=== PATIENT | female | born 1950 | race Caucasian/White ===

== ENCOUNTER 2021-11-16 07:54 | Outpatient (CLI) | payer OTHER, SELFPAY ==
[2021-11-16 14:34] LABS: TSH With Reflex to FT4* 0.869 uIU/mL (0.270-4.200)
[2021-11-16 16:33] LABS: Albumin* 4.4 g/dL (3.3-5.0); Chloride* 100 mmol/L (96-114)
[2021-11-16 16:34] LABS: Potassium* 4.5 mmol/L (3.6-5.1); Sodium* 138 mmol/L (135-149)
[2021-11-16 16:36] LABS: Aspartate Amino Transferase* 28 U/L (12-35); Bilirubin Total* 0.3 mg/dL (0.1-1.5); Carbon Dioxide* 30 mmol/L (20-32); Creatinine* 0.8 mg/dL (0.5-1.5); Estimated Glomerular Filt Rate 80 ml/min; Total Protein* 7.2 g/dL (6.0-8.3)
[2021-11-16 16:37] LABS: Alanine Aminotransferase* 18 U/L (4-35); Alkaline Phosphatase* 102 U/L (40-150); Blood Urea Nitrogen* 19 mg/dL (7-30); Calcium* 9.3 mg/dL (8.4-10.6); Glucose* 97 mg/dL (60-115)
[2021-11-18 03:33] LABS: Vitamin D, 1,25-Dihydroxy 49.8 pg/mL (19.9-79.3)
== END 2021-11-16 07:55 | disposition home or self-care (01) ==
PROVIDERS: PCP Physician Assistant Medical; Visit Provider Physician Assistant Medical
DX: E55.9 Vitamin D deficiency, unspecified (principal); R63.4 Abnormal weight loss; R53.83 Other fatigue
CPT/HCPCS: 80053; 82652; 84443

== ENCOUNTER 2022-04-20 08:00 | Outpatient (CLI) | payer OTHER, SELFPAY ==
[2022-04-20 15:28] LABS: Albumin* 4.1 g/dL (3.3-5.0); Chloride* 110 mmol/L (96-114); Potassium* 4.3 mmol/L (3.6-5.1); Sodium* 145 mmol/L (135-149)
[2022-04-20 15:31] LABS: Alkaline Phosphatase* 107 U/L (40-150); Aspartate Amino Transferase* 27 U/L (12-35); Bilirubin Total* 0.4 mg/dL (0.1-1.5); Blood Urea Nitrogen* 19 mg/dL (7-30); Carbon Dioxide* 28 mmol/L (20-32); Creatinine* 0.7 mg/dL (0.5-1.5); Estimated Glomerular Filt Rate 94 ml/min; Total Protein* 6.6 g/dL (6.0-8.3)
[2022-04-20 15:32] LABS: Alanine Aminotransferase* 20 U/L (4-35); Calcium* 9.3 mg/dL (8.4-10.6); Glucose* 102 mg/dL (60-115)
== END 2022-04-20 08:01 | disposition home or self-care (01) ==
LOC: FRMREF 08:02
PROVIDERS: PCP Physician Assistant Medical; Visit Provider Physician Assistant Medical
DX: R10.9 Unspecified abdominal pain (principal); G89.29 Other chronic pain
CPT/HCPCS: 80053

== ENCOUNTER 2022-05-11 07:46 | Outpatient (CLI) | payer OTHER, SELFPAY ==
--- NOTE | 2022-05-11 08:00 | CRLHL7_ITS ---
For Patients: As a result of the Century Cures Act, medical imaging exams and procedure reports are released immediately into your electronic medical record. You may view this report before your referring provider. If you have questions, please contact your health care provider. Indication: chronic abdominal pain, more epigastric pain, but pain all over, nausea Technique: Postcontrast CT abdomen and pelvis. 71 cc Isovue 370 intravenous contrast. Please note that all CT scans at this facility use dose modulation, iterative reconstruction, and/or weight-based dosing when appropriate to reduce radiation dose to as low as reasonably achievable. Comparison: 10/15/2015 Findings: There is mild linear subsegmental atelectasis within the right middle lobe. Mild hepatic steatosis. No intrahepatic mass or stigmata of cirrhosis. Postoperative changes of hiatal hernia repair. Atherosclerotic disease. No aneurysm. Adrenal glands normal. Normal kidneys. Gallbladder unremarkable. Normal spleen. Pancreas normal. No free air, free fluid or abscess. Mild circumferential thickening of the distal stomach noted, see series 2, images 35-43. Bladder normal. Normal uterus. Ovaries unremarkable. Moderate stool in the colon. No diverticulitis. No abdominal or pelvic adenopathy. Degenerative disc disease at the thoracolumbar junction. Facet degeneration lower lumbar spine. No fracture. Mild degenerative joint disease of both hips. Impression: Postoperative changes of hiatal hernia repair. There may be mild mucosal thickening of the distal stomach wall which may suggest gastritis. No gastric outlet obstruction. Moderate stool within the redundant colon. No evidence of diverticulitis. Normal gallbladder without evidence of calcified gallstones or biliary obstruction. Please note that all CT scans at this facility use dose modulation, iterative reconstruction, and/or weight-based dosing when appropriate to reduce radiation dose to as low as reasonably achievable. Dictated by Sedrick Castro MD @ 05/11/2022 12:42:22 PM (Electronically Signed)
== END 2022-05-11 07:47 | disposition home or self-care (01) ==
LOC: CT 07:48
PROVIDERS: PCP Physician Assistant Medical; Visit Provider Physician Assistant Medical
DX: R10.9 Unspecified abdominal pain (principal); G89.29 Other chronic pain
CPT/HCPCS: 74177; Q9967

== ENCOUNTER 2022-07-26 07:23 | Outpatient (CLI) | payer OTHER, SELFPAY ==
--- NOTE | 2022-07-26 08:17 | W.ANESCHARGE ---
Anesthesia Charges Start Date/Time Anesthesia Start Date: 07/26/22 Anesthesia Start Time: 08:25 Stop Date/Time Anesthesia Stop Date: 07/26/22 Anesthesia Stop Time: 08:45
--- NOTE | 2022-07-26 08:44 | W.ANESCHARGE ---
Anesthesia Charges Start Date/Time Anesthesia Start Date: 07/26/22 Anesthesia Start Time: 08:25 Stop Date/Time Anesthesia Stop Date: 07/26/22 Anesthesia Stop Time: 08:45
== END 2022-07-26 07:24 | disposition home or self-care (01) ==
LOC: OP CLINIC 07:24
PROVIDERS: PCP Physician Assistant Medical; Visit Provider Internal Medicine
DX: R19.8 Other specified symptoms and signs involving the digestive system and abdomen (principal)
CPT/HCPCS: 43239; 731; 88305; J2704; J3490

== ENCOUNTER 2022-09-20 09:23 | Day surgery (SDC) | payer OTHER, SELFPAY ==
[2022-09-20] VITALS (24 sets, daily range): BP systolic 102–168; BP diastolic 64–92; PULSE 58–113; RESP 12–95; TEMP 20–36.8; O2SAT 93–100; BMI 32.0
[2022-09-20] MEDS: LACTATED RINGERS 1000 ML 1,000 ML 100 ML IV ×2 (09:35→13:28)
[2022-09-20] MEDS: CELECOXIB 200 MG CAPSULE PO (09:55)
[2022-09-20] MEDS: ACETAMINOPHEN 500 MG TABLET 1000 MG PO ×3 (09:55→23:46)
[2022-09-20] MEDS: OXYCODONE (CR) 10 MG TAB.ER.12H PO (09:56)
[2022-09-20] MEDS: SODIUM CHLORIDE 0.9 % (FLUSH) 10 ML SYRINGE IVF (09:56)
[2022-09-20] MEDS: fentaNYL 100 MCG/2 ML inj IVP (10:45)
[2022-09-20] MEDS: MIDAZOLAM HCL 1 MG/ML inj IVP (10:45)
--- NOTE | 2022-09-20 10:46 | SUR.PREOP ---
TIME?OUT:?1043 PT/RN/MDA?VERIFICATION?OF?SURGICAL?SITE Left Knee,?PROCEDURE, Adductor Canal Block?AND?CONSENT OBTAINED?PRIOR?TO?INVASIVE?PROCEDURE.
[2022-09-20] MEDS: CEFAZOLIN 2 GM in 0.9 % SODIUM CHLORIDE Mini-bag 100 ML IVPB ×2 (11:05→17:55)
[2022-09-20] MEDS: TRANEXAMIC ACID 100 MG/ML INJ 1000 MG IV (11:10)
--- NOTE | 2022-09-20 11:13 | CRLHL7_ITS ---
For Patients: As a result of the Cures Act, medical imaging exams and procedure reports are released immediately into your electronic medical record. You may view this report before your referring provider. If you have questions, please contact your health care provider. INDICATION: Follow up a left knee arthroplasty. TECHNIQUE: Two postoperative images of the left knee. COMPARISON: Pre-surgical images from September 05, 2022. FINDINGS: New left total knee arthroplasty with patellar resurfacing. The components are adequately aligned and well seated. Air within the soft tissues and joint space related to the surgery. IMPRESSION: Postsurgical change from a left total knee arthroplasty. The components are adequately aligned and well seated. Dictated by Darian Cook MD @ 09/20/2022 2:26:52 PM (Electronically Signed)
--- NOTE | 2022-09-20 12:29 | PM.ORPRC ---
Procedure Note Date of procedure: 09/20/22 Procedure: PREOPERATIVE DIAGNOSIS: 1. Left knee osteoarthritis, primary, severe POSTOPERATIVE DIAGNOSIS: 1. Left knee osteoarthritis, primary, severe PROCEDURE: 1. Left total knee arthroplasty SURGEON: Osvaldo Rainey MD. PATIENT TRANSPORTER: Castro Dugan PA-C - Of note, a skilled bilingual teacher assistant was critical for this case to aid in patient positioning, tissue retraction, limb manipulation/positioning, and closure. ANESTHESIA: Spinal anesthetic EBL: 50ml IMPLANTS: DePuy J&J all cemented TKA - Attune PS femur size 3 narrowing, size 2 tibia, 5 poly spacer, 35 mm patella TOURNIQUET: 90 min at 300 torr COMPLICATIONS: None evident INDICATIONS: The patient is a pleasant 72-year-old female who has experienced severe left knee pain and difficulty bearing weight. Workup included x-rays which revealed severe osteoarthrosis in the knee. Given the deformity, the dysfunction, and the pain, as well as the failure of nonoperative management, recommendation was made for surgery. FINDINGS: Moderate effusion upon entering joint. Full-thickness chondral loss medial compartment and to a lesser degree patellofemoral compartment. Tricompartmental osteophytes noted. DESCRIPTION OF PROCEDURE: Following a thorough discussion of risks, benefits, and alternatives consent was obtained and the left knee was marked. The patient was brought to the operating room and placed supine on the operating table. Induction of anesthesia was undertaken. 1 g IV Ancef and 1 g tranexamic acid was administered within 1 hr of incision preoperatively. Proper time-out was performed identifying proper patient, site, procedure. The operative extremity was prepped and draped in the appropriate sterile fashion using ChloraPrep after the patient was positioned supine with all bony prominences well padded. A longitudinal, anterior, midline skin incision was made starting approximately 3cm proximal to the superior pole of the patella and advanced distal to the tibial tubercle. A median parapatellar arthrotomy was created. A medial subperiosteal sleeve was created with knife, thompson elevator and curved osteotome. The retropatellar fatpad was resected and the synovium in the suprapatellar pouch excised to visualize the anterior femoral cortex. Femoral preparation was performed via an intramedullary guide. Step drill allowed access into the femoral canal. The distal cutting guide was placed with 5? of valgus and 10 mm cut on the distal femur. Femur was sized using a anterior referencing guide in 3? of external rotation. This found have a best fit with the sizing noted above. The 4 in 1 cutting block was then placed, and the distal femur shaped accordingly. The box cut was then created and the trial implant inserted to confirm appropriate fit. We turned our attention to the proximal tibia. Extramedullary guide was utilized for cutting with the goal of being 90 degree cut from the mechanical axis of the tibia in the varus/valgus plane utilizing tibial crest as the primary alignment. Initially a 2 mm resection was performed from the medial tibial plateau. Ultimately, balancing was achieved in both flexion and extension in both varus and valgus. The knee was able to achieve full extension as well comfortably. The patella was initially measured and found have a thickness of 22 mm. It was resected back to approximately 14.5 mm. It was sized to be a best fit with as noted above. This was drilled, trial placed. All trials were placed and found to have an excellent stability and balance. At this stage, trial implants were removed, the knee was thoroughly irrigated with normal saline, and the cement was mixed. After irrigation, the knee was thoroughly dried, and cement placed, with the real tibial and femoral implants placed along with the patella. Trial poly spacer was placed and confirmed to have excellent range of motion and full extension, and the real poly spacer opened and inserted. All extra cement was removed, and a 3 min Betadine soak performed. Finally, a final irrigation round with normal saline was performed. Closure performed with 0 PDS and #0 Stratafix for the quad tendon/retinaculum. 2-0 Vicryl/Stratafix for the subcutaneous and 4-0 Monocryl for subcuticular closure. Dressings were applied and the patient was awoken from anesthesia after the tourniquet deflated and transferred the PACU in stable condition. A skilled bilingual teacher assistant was critical for this case to aid in patient positioning, tissue retraction, bone exposure, limb manipulation/positioning, patient safety, and closure. PLAN: 1. Weight bear as tolerated operative extremity. 2. 23 hr perioperative antibiotics. 3. Ice. 4. PT/OT consults for ambulation assistance/mobility education. 5. Social work consult for discharge planning. 6. DVT prophylaxis with at SCDs, [place] Hose, and aspirin twice daily.
--- NOTE | 2022-09-20 12:43 | W.PM.NB ---
Nerve Block Nerve Block Time Seen by Provider: 10:45 Date Seen: 09/20/22 Type of block requested by surgeon for post-operative analgesia: adductor canal Side: left Time out performed: Yes Verification of patient name: Yes Verification of date of : Yes Site marking: site marked Name of person performing procedure: Aaron Escobar Continuous monitoring Was continuous monitoring of O2 sat, B/P, front desk monitor, recorded every 15 minutes?: Yes Procedure Ultrasound guided. Images saved: Yes Medications given in 5ml increments after negative aspiration: Ropivicaine %: 0.5 mL: 20 Needle gauge: 21 Decadron (mg): 10 Precedex (mcg): 20 Patient tolerated procedure well: Yes Block Charges Block Charge (with Pro Fee): Femoral Nerve Use of Ultrasound Machine for Block: Yes- US Guidance/pain block
--- NOTE | 2022-09-20 12:45 | W.PM.NB ---
Nerve Block Nerve Block Time Seen by Provider: 10:45 Date Seen: 09/20/22 Type of block requested by surgeon for post-operative analgesia: geniculars Side: left Time out performed: Yes Verification of patient name: Yes Verification of date of : Yes Site marking: site marked Name of person performing procedure: Aaron Escobar Continuous monitoring Was continuous monitoring of O2 sat, B/P, combination building inspector, recorded every 15 minutes?: Yes Procedure Ultrasound guided. Images saved: Yes Medications given in 5ml increments after negative aspiration: Ropivicaine %: 0.5 mL: 10 Needle gauge: 25 Patient tolerated procedure well: Yes Block Charges Block Charge (with Pro Fee): Genicular Nerve Block
[2022-09-20] MEDS: LACTATED RINGERS 1000 ML 1,000 ML 75 ML IV (14:24)
--- NOTE | 2022-09-20 16:23 | PM.IMCN1 ---
Date of Consult Patient: [facility] Patient Consult date: 09/20/22 Requesting Physician: Orthopedics Primary Care Provider: Vera Steve PA-C Consult Narrative Reason for consult: Postop care re: obstructive sleep apnea, glaucoma, coronary disease Narrative: Nicole Anaya is a 72 year old woman undergoes an elective left total knee arthroplasty today without any complications. Has underlying severe, symptomatic advanced left gonarthrosis. Review of Systems Status of ROS: Reports: 10 or more systems reviewed and unremarkable except as noted in History and below Narrative: Denies angina, anginal equivalent, and syncope, near-syncope, dyspnea at rest, paroxysmal nocturnal dyspnea, orthopnea. Does have chronic, baseline dyspnea with exertion. Denies cough. Denies palpitations or fluttering. Denies dysphagia, odynophagia, dyspepsia, abdominal pain, nausea, vomiting, constipation, or diarrhea. Able to carry out her activities of daily living. Tells me she believes she needs to have her right total knee arthroplasty revised in the future. Denies other limiting myalgias or arthralgias. Denies focal motor neurologic deficits. Denies weight gain or weight loss. Lives alone. Has neighbors and family that support her. [facility] Medical History Sleep apnea ?G47.30 - Sleep apnea, unspecified (ICD-10) Tension type headache ?G44.209 - Tension-type headache, unspecified, not intractable (ICD-10) Obstructive sleep apnea syndrome (03/31/10) ?G47.33 - Obstructive sleep apnea (adult) (pediatric) (ICD-10) Inflammatory liver disease (03/31/10) ?K75.9 - Inflammatory liver disease, unspecified (ICD-10) Hypokalemia (12/25/14) ?E87.6 - Hypokalemia (ICD-10) Hyperlipidemia (03/31/10) ?E78.5 - Hyperlipidemia, unspecified (ICD-10) History of smoking ?Z87.891 - Personal history of nicotine dependence (ICD-10) Depression (03/31/10) ?F32.A - Depression, unspecified (ICD-10) Dependent edema ?R60.9 - Edema, unspecified (ICD-10) Coronary artery disease (05/20/10) ?I25.10 - Atherosclerotic heart disease of [place] coronary artery without angina pectoris (ICD-10) COPD (chronic obstructive pulmonary disease) (05/20/10) ?J44.9 - Chronic obstructive pulmonary disease, unspecified (ICD-10) Anxiety (03/31/10) ?F41.9 - Anxiety disorder, unspecified (ICD-10) Surgical History Status post laparoscopic sleeve gastrectomy (11/11/14) ?Z98.84 - Bariatric surgery status (ICD-10) History of total right knee replacement (02/17/21) ?Z96.651 - Presence of right artificial knee joint (ICD-10) History of repair of hiatal hernia ?Z98.890 - Other specified postprocedural states (ICD-10) ?Z87.19 - Personal history of other diseases of the digestive system (ICD-10) History of eye surgery ?Z98.890 - Other specified postprocedural states (ICD-10) History of colonoscopy with polypectomy ?Z98.890 - Other specified postprocedural states (ICD-10) ?Z86.010 - Personal history of colonic polyps (ICD-10) History of section (03/31/10) ?Z98.891 - History of uterine scar from previous surgery (ICD-10) History of angioplasty ?Z98.62 - Peripheral vascular angioplasty status (ICD-10) Family History Father High blood pressure Mother Liver cirrhosis ETOH abuse Sister ETOH abuse Sleep apnea Brother ETOH abuse Sleep apnea Social History Narrative: Smoker, quit 2012. Smoked over 40 years about 2 pks a day Smoking Status: Former smoker What tobacco products do you use: cigarettes Smoking packs per day: 1.5 Smoking cigarettes per day: 30.0 Years smoked: 30 Smoking pack-years: 45.00 Smoking quit date/years: <= 15 years ago Do you use any of these nicotine containing products: None Second hand tobacco smoke exposure: No How often do you have a drink containing alcohol: never How often do you have six or more drinks on one occasion: Never AUDIT-C Alcohol total score: 0 Non-prescribed substance use: denies use Caffeine: Yes (coffee, 2 cups/day) service: No Meds Home Medications and Allergies Home Medications Medication Instructions Recorded Confirmed Type latanoprost 0.005 % eye drops 1 drp ophthalmic (eye) HS 09/28/21 09/15/22 History magnesium oxide 400 mg (241.3 mg 400 mg PO DAILY 09/28/21 09/20/22 History magnesium) tablet modafinil 200 mg tablet 400 mg PO DAILY 09/28/21 09/20/22 History nitroglycerin 0.4 mg sublingual 0.4 mg sublingual Q5M PRN 09/28/21 09/15/22 History tablet tiotropium bromide 2.5 2 inh inhalation DAILY 09/28/21 09/15/22 History mcg/actuation mist for inhalation budesonide-formoterol HFA 80 2 puff inhalation BID 06/01/22 09/20/22 History mcg-4.5 mcg/actuation aerosol inhaler (Symbicort) polyethylene glycol 3350 17 17 g PO DAILY 08/08/22 09/15/22 History gram/dose oral powder aspirin 81 mg chewable tablet 81 mg PO DAILY 09/14/22 09/20/22 History cyanocobalamin (vitamin B-12) 1,000 mcg sublingual DAILY 09/15/22 09/20/22 History 1,000 mcg sublingual tablet pediatric multivitamin no.136 2 tab PO DAILY 09/15/22 09/15/22 History (Children Multivitamin chewable tablet) Allergies Allergy/AdvReac Type Severity Reaction Status Date / Time mirtazapine Allergy Severe sore Verified 09/20/22 09:40 throat, mouth felt swollen esomeprazole Allergy Intermediate Hives Verified 09/20/22 09:40 lactose Allergy Intermediate GI upset Verified 09/20/22 09:40 atorvastatin AdvReac Intermediate leg cramps Verified 09/20/22 09:40 prednisone AdvReac Intermediate really Verified 09/20/22 09:40 irritable and goes out of my mind Exam Narrative: Exam Narrative: Appears comfortable and in no acute distress. Vision and hearing are grossly normal. Alert and oriented to self, place, time, situation. Friendly, articulate, cooperative. Mood and affect are congruent. Neck is supple. Midline trachea. No JVD or hepatojugular reflux. Lungs are clear to auscultation without wheezing, rhonchi, or rales. Heart tones with regular rhythm, normal S1-S2, without murmur, gallop, or rub. Abdomen with active bowel sounds, soft, nontender. No rebound or guarding. Starting to be able to move all 4 extremities now. Const: Vital Signs, click to edit/add: Vital Signs - 24 hr 09/20/22 09:45 09/20/22 10:40 09/20/22 10:45 Temperature 97.7 F 97.7 F Pulse Rate 75 71 70 Pulse Rate [Right Pulse Oximeter] Respiratory Rate 16 16 16 Blood Pressure 107/67 133/80 110/90 H Blood Pressure [Le ft Arm] Blood Pressure [Ri ght Arm] Pulse Oximetry 95 98 98 Oxygen Delivery Me thod Room Air Nasal Cannula Nasal Cannula Oxygen Flow Rate 2 2 09/20/22 10:50 09/20/22 13:20 09/20/22 13:25 Temperature 68 F L 97.3 F L Pulse Rate 71 65 62 Pulse Rate [Right Pulse Oximeter] Respiratory Rate 16 14 12 Blood Pressure 112/65 107/79 113/66 Blood Pressure [Le ft Arm] Blood Pressure [Ri ght Arm] Pulse Oximetry 98 96 99 Oxygen Delivery Me thod Nasal Cannula Room Air OxyMask Oxygen Flow Rate 2 10 09/20/22 13:30 09/20/22 13:35 09/20/22 13:40 Temperature 97.4 F L Pulse Rate 61 58 L 64 Pulse Rate [Right Pulse Oximeter] Respiratory Rate 12 12 14 Blood Pressure 102/64 114/66 115/89 Blood Pressure [Le ft Arm] Blood Pressure [Ri ght Arm] Pulse Oximetry 100 100 96 Oxygen Delivery Me thod OxyMask OxyMask Room Air Oxygen Flow Rate 10 10 09/20/22 13:45 09/20/22 13:50 09/20/22 14:00 Temperature 97.4 F L 91.9 F L Pulse Rate 66 63 Pulse Rate [Right Pulse Oximeter] 62 Respiratory Rate 14 12 12 Blood Pressure 121/78 121/83 Blood Pressure [Le ft Arm] 137/78 Blood Pressure [Ri ght Arm] Pulse Oximetry 95 97 97 Oxygen Delivery Me thod Room Air Room Air Room Air Oxygen Flow Rate 09/20/22 14:00 09/20/22 14:00 09/20/22 14:15 Temperature 91.9 F L 91.9 F L 94.9 F L Pulse Rate 62 Pulse Rate [Right Pulse Oximeter] 62 62 Respiratory Rate 16 16 16 Blood Pressure Blood Pressure [Le ft Arm] 137/78 137/79 Blood Pressure [Ri ght Arm] 137/78 Pulse Oximetry 97 Oxygen Delivery Me thod Room Air Room Air Room Air Oxygen Flow Rate 10 09/20/22 14:30 Temperature 95.5 F L Pulse Rate Pulse Rate [Right Pulse Oximeter] 59 L Respiratory Rate 16 Blood Pressure Blood Pressure [Le ft Arm] 141/82 H Blood Pressure [Ri ght Arm] Pulse Oximetry 97 Oxygen Delivery Me thod Room Air Oxygen Flow Rate 10 Documenting provider has reviewed patient's vital signs: yes Assessment and Plan Assessment and plan (1) Osteoarthritis of left knee: Problem comment: Severe Status: Chronic (2) Status post left knee replacement: Status: Acute (3) COPD (chronic obstructive pulmonary disease): Status: Acute (4) Obstructive sleep apnea syndrome: Status: Acute (5) Coronary artery disease: Status: Acute (6) Low tension glaucoma: Status: Acute (7) Hyperlipidemia: Status: Acute Plan 1. Reviewed impression with patient. Answered her questions. 2. Agree with perioperative IV a antibiotic prophylaxis. 3. Agree with postoperative venous thromboembolism prophylaxis. 4. Patient did not bring her CPAP machine with her. She tells me that at home sometimes she forgets to use it and does all right except for she is more sleepy during the day. 5. Continue with other supportive measures.
--- NOTE | 2022-09-20 18:31 | PC.NURSE ---
Patient arrived to floor at 1400. AAOX4. Patient hypothermic at 91.9f. Patient asymptomatic and bairhugger applied. Patient comfortable with no complaints. No c/o n/v, h/a, dizziness. Patient states her leg continues to feel heavy from the anesthesia. Patient heart rate increased to 110 after she consumed coffee with dinner. Patient BP remains stable. Patient asymptomatic. Patient resting. Patient has no family at bedside and patient states her son dropped her off and she told him to stay home. Patient able to verbalize needs and use call light appropriately.
[2022-09-20] MEDS: ONDANSETRON 2 MG/ML inj 4 MG IVP (19:00)
[2022-09-20] MEDS: HYDROmorphone 0.5 mg/0.5 ml inj IVP (19:44)
[2022-09-20] MEDS: diphenhydrAMINE 50 MG/ML inj IVP (19:44)
[2022-09-20] MEDS: 0.9 % SODIUM CHLORIDE 500 ML 500 ML IV (19:54)
[2022-09-20] MEDS: LATANOPROST 0.005% OPHTH 1 DROP EYE-BOTH (21:47)
[2022-09-20] MEDS: SENNOSIDES 1 TAB TABLET 2 TAB PO (21:47)
[2022-09-20] MEDS: ASPIRIN 81 MG TABLET EC PO (21:47)
--- NOTE | 2022-09-20 23:19 | PC.NURSE ---
End of shift: Pt A&O. Pt HR in 110s-120s on assessment at 1999. EKG done and MD aware, see orders. Pt placed on 1L O2 at 2000 to keep sats >90%. Denies SOB and chest pain. Pt complaining of n/v, PRN Zofran given by previous nurse. Due to nausea PRN IV Dilated given for pain control. Pt stated adequate relief. At end of shift pt is maintaining sats >90% on room air and HR is in the high 80s. A1 w/ walker and gait belt. Voiding adequately. Dressing c/d/i and cryocuff to site.
[2022-09-21] MEDS: CEFAZOLIN 2 GM in 0.9 % SODIUM CHLORIDE Mini-bag 100 ML IVPB ×2 (02:06→09:14)
[2022-09-21] MEDS: LACTATED RINGERS 1000 ML 1,000 ML 75 ML IV (02:11)
[2022-09-21 03:00] VITALS: BP 125/73; PULSE 91; RESP 14; TEMP 36.2; O2SAT 97
[2022-09-21] MEDS: ACETAMINOPHEN 500 MG TABLET 1000 MG PO (06:22)
[2022-09-21] MEDS: OXYCODONE 5 MG TABLET PO ×2 (06:23→08:45)
[2022-09-21] MEDS: OMEPRAZOLE 20 MG CAPSULE DR PO (06:23)
--- NOTE | 2022-09-21 06:35 | PC.NURSE ---
Pleasant and cooperative 72 year old female status post op LTKA. Patient reporting pain at 2/10 while in bed, did rate pain at 6/10 when up and ambulating to the bathroom at 0615, PRN oxycodone 5mg administered at 0622 for pain. Cryocuff intact to left knee while in bed. Patient self reported that she has sleep apnea and utilizes a CPAP machine at home but did not bring it with, on continuous pulse ox and sats vary from 86%-97%. Patient slept in high fowlers. Dressing to left knee clean dry and intact, non pitting edema to left knee with small purple bruise appearing above knee. Denies any nausea or vomiting, tolerating fluids and food. Saline locked at 0600. Denies any shortness of breath or cough.
[2022-09-21 06:50] LABS: Eosinophils Absolute Auto 0.02 K/uL (0.00-0.50); Eosinophils Percent Auto 0.3 % (0.0-7.0); Hemoglobin* 10.6 gm/dL (12.0-16.0); Immature Granulocytes Abs Auto 0.01 K/uL (0.00-0.30); Immature Granulocytes Pct Auto 0.1 %; Lymphocytes Absolute Auto 1.79 K/uL (0.90-2.90); Lymphocytes Percent Auto 23.4 % (20-44); Mean Corpuscular HGB Conc 34 gm/dL (32-36); Mean Corpuscular Hemoglobin 33 pg (26-34); Mean Corpuscular Volume 97 fL (80-100); Monocytes Percent Auto 7.2 % (0.0-11.0); Neutrophils Absolute Auto 5.27 K/uL (1.7-7.0); Platelet Count* 216 K/uL (140-440); RDW Coefficient of Variation % 11.8 % (11.5-15.5); White Blood Count* 7.64 K/uL (4.50-11.00)
[2022-09-21 06:59] LABS: Sodium* 140 mmol/L (135-149)
[2022-09-21 07:00] LABS: Potassium* 4.1 mmol/L (3.6-5.1)
[2022-09-21 07:02] LABS: Creatinine* 0.6 mg/dL (0.5-1.5); Est. Creatinine Clearance* 59.44; Estimated Glomerular Filt Rate 97 ml/min
[2022-09-21 07:03] LABS: Blood Urea Nitrogen* 19 mg/dL (7-30)
[2022-09-21 07:19] LABS: Slide Review Reflex No
[2022-09-21 07:37] VITALS: BP 128/73; PULSE 76; RESP 16; TEMP 36.4; O2SAT 98
[2022-09-21 07:55] LABS: Albumin* 3.5 g/dL (3.3-5.0)
[2022-09-21 07:57] LABS: Bilirubin Total* 0.2 mg/dL (0.1-1.5)
[2022-09-21 07:58] LABS: Alanine Aminotransferase* 17 U/L (4-35); Alkaline Phosphatase* 87 U/L (40-150); Aspartate Amino Transferase* 28 U/L (12-35)
--- NOTE | 2022-09-21 08:40 | PM.ORPN ---
Subjective Subjective Date Seen: 09/21/22 Principal diagnosis: Status postop day 1 left total knee arthroplasty Interval history: Patient reports doing well. No acute events over night. Some nausea last night, relieved with Zofran. Pain managed with scheduled and PRN medications, ice. DVT prophylaxis: 81 mg aspirin by mouth twice daily, bilateral knee high Berlin stockings, SCDs, walking. Denies fevers, chills, aches, N/V, CP, SOB/ISAAC, or lightheadedness. Ortho Exam Narrative Exam Narrative: -Patient appears comfortable; no apparent acute distress -Alert and oriented times 3 -Operative knee mildly swollen; soft tissues supple; no ecchymosis; no erythematous streaking Warmth appropriate -Surgical dressing clean, dry, intact; no drainage -Bilateral calfs soft; no significant swelling, edema, tenderness, erythema, discoloration, warmth, or palpable cords -2+ DP/PT pulses, intact dermatomes and myotomes distally (5/5 strength) Const Vital Signs, click to edit/add: Vital Signs - 24 hr 09/20/22 09:45 09/20/22 10:40 09/20/22 10:45 Temperature 97.7 F 97.7 F Pulse Rate 75 71 70 Pulse Rate [Right Pulse Oximeter] Respiratory Rate 16 16 16 Blood Pressure 107/67 133/80 110/90 H Blood Pressure [Left Arm] Blood Pressure [Right Arm] Pulse Oximetry 95 98 98 Oxygen Delivery Method Room Air Nasal Cannula Nasal Cannula Oxygen Flow Rate 2 2 09/20/22 10:50 09/20/22 13:20 09/20/22 13:25 Temperature 68 F L 97.3 F L Pulse Rate 71 65 62 Pulse Rate [Right Pulse Oximeter] Respiratory Rate 16 14 12 Blood Pressure 112/65 107/79 113/66 Blood Pressure [Left Arm] Blood Pressure [Right Arm] Pulse Oximetry 98 96 99 Oxygen Delivery Method Nasal Cannula Room Air OxyMask Oxygen Flow Rate 2 10 09/20/22 13:30 09/20/22 13:35 09/20/22 13:40 Temperature 97.4 F L Pulse Rate 61 58 L 64 Pulse Rate [Right Pulse Oximeter] Respiratory Rate 12 12 14 Blood Pressure 102/64 114/66 115/89 Blood Pressure [Left Arm] Blood Pressure [Right Arm] Pulse Oximetry 100 100 96 Oxygen Delivery Method OxyMask OxyMask Room Air Oxygen Flow Rate 10 10 09/20/22 13:45 09/20/22 13:50 09/20/22 14:00 Temperature 97.4 F L 91.9 F L Pulse Rate 66 63 Pulse Rate [Right Pulse Oximeter] 62 Respiratory Rate 14 12 12 Blood Pressure 121/78 121/83 Blood Pressure [Left Arm] 137/78 Blood Pressure [Right Arm] Pulse Oximetry 95 97 97 Oxygen Delivery Method Room Air Room Air Room Air Oxygen Flow Rate 09/20/22 14:00 09/20/22 14:00 09/20/22 14:15 Temperature 91.9 F L 91.9 F L 94.9 F L Pulse Rate 62 Pulse Rate [Right Pulse Oximeter] 62 62 Respiratory Rate 16 16 16 Blood Pressure Blood Pressure [Left Arm] 137/78 137/79 Blood Pressure [Right Arm] 137/78 Pulse Oximetry 97 Oxygen Delivery Method Room Air Room Air Room Air Oxygen Flow Rate 09/20/22 14:30 09/20/22 14:45 09/20/22 15:00 Temperature 95.5 F L 96.8 F L Pulse Rate Pulse Rate [Right Pulse Oximeter] 59 L 68 Respiratory Rate 16 16 Blood Pressure Blood Pressure [Left Arm] 141/82 H Blood Pressure [Right Arm] 150/81 H Pulse Oximetry 97 97 97 Oxygen Delivery Method Room Air Room Air Oxygen Flow Rate 09/20/22 15:00 09/20/22 15:00 09/20/22 15:30 Temperature 96.5 F L 96.2 F L Pulse Rate Pulse Rate [Right Pulse Oximeter] 65 65 Respiratory Rate 16 16 16 Blood Pressure Blood Pressure [Left Arm] Blood Pressure [Right Arm] 141/86 H 150/87 H Pulse Oximetry 95 97 Oxygen Delivery Method Room Air Room Air Oxygen Flow Rate 09/20/22 16:00 09/20/22 17:00 09/20/22 18:30 Temperature 97.2 F L 98.2 F 97.6 F Pulse Rate Pulse Rate [Right Pulse Oximeter] 72 76 110 H Respiratory Rate 16 16 16 Blood Pressure Blood Pressure [Left Arm] Blood Pressure [Right Arm] 144/85 H 150/85 H 138/84 Pulse Oximetry 97 97 97 Oxygen Delivery Method Room Air Room Air Room Air Oxygen Flow Rate 10 09/20/22 19:00 09/20/22 20:00 09/20/22 21:00 Temperature 97.2 F L 97.8 F Pulse Rate Pulse Rate [Right Pulse Oximeter] 108 H 113 H 85 Respiratory Rate 16 95 H 18 Blood Pressure Blood Pressure [Left Arm] Blood Pressure [Right Arm] 157/86 H 168/92 H 126/87 Pulse Oximetry 97 94 Oxygen Delivery Method Room Air Nasal Cannula Nasal Cannula Oxygen Flow Rate 10 1 1 09/20/22 23:00 09/20/22 23:00 09/21/22 03:00 Temperature 96.9 F L 97.2 F L Pulse Rate Pulse Rate [Right Pulse Oximeter] 88 91 Respiratory Rate 16 14 Blood Pressure Blood Pressure [Left Arm] Blood Pressure [Right Arm] 128/77 125/73 Pulse Oximetry 93 93 97 Oxygen Delivery Method Room Air Nasal Cannula Oxygen Flow Rate 1 09/21/22 07:37 09/21/22 07:37 Temperature 97.5 F L Pulse Rate Pulse Rate [Right Pulse Oximeter] 76 Respiratory Rate 16 Blood Pressure Blood Pressure [Left Arm] Blood Pressure [Right Arm] 128/73 Pulse Oximetry 98 98 Oxygen Delivery Method Room Air Oxygen Flow Rate Assessment and Plan Assessment and plan (1) Osteoarthritis of left knee: Problem details: Severe Status: Chronic (2) Status post left knee replacement: Problem details: 09/20/2022 Status: Acute (3) COPD (chronic obstructive pulmonary disease): Status: Acute (4) Obstructive sleep apnea syndrome: Status: Acute (5) Coronary artery disease: Status: Acute (6) Low tension glaucoma: Status: Acute (7) Hyperlipidemia: Status: Acute Plan - Complete 23 hour perioperative antibiotics. - PT/OT consult for education and assistance. - Social work consult for discharge planning - Prescribed analgesics as needed - DVT prophylaxis: 81 mg aspirin by mouth twice daily, bilateral knee high Berlin Hose stockings and SCDs - Anticipation is for discharge to home, self-care 09/21/2022 if the patient remains medically stable, pain is controlled, and they are safe with mobilization. - patient has a 2-year-old puppy at home, which she will need to walk and take out for bathroom. She also has to navigate 7 steps in and out of her apartment. Her plan is to have the dog leash attached her walker. Her neighbor is willing to take care of the dog if she would like. Strongly encouraged that she accept her neighbor's offer to watch the dog while she recovers from left total knee.
[2022-09-21] MEDS: SENNOSIDES 1 TAB TABLET 2 TAB PO (08:45)
[2022-09-21] MEDS: ASPIRIN 81 MG TABLET EC PO (08:45)
[2022-09-21] MEDS: LORATADINE 10 MG TABLET PO (08:45)
[2022-09-21] MEDS: MAGNESIUM OXIDE 400 MG TABLET PO (08:46)
[2022-09-21] MEDS: polyethylene glycoL 3350 17 GM PACK PO (08:46)
[2022-09-21] MEDS: FLUTICASONE PROPIONATE NASAL 2 SPRAY NOSTRIL-B (08:46)
--- NOTE | 2022-09-21 09:31 | PC.SOCIAL ---
Met with pt. to discuss discharge plans. Pt. plans to discharge home with friend and family support. Pt. did well with PT today. Pt. has a friend that will assist as needed as well as a son who lives locally, and one in [place]. Pt.'s only concern is her dog but she is planning to see if her niece can take it. Pt.'s are Coordinator Angelic @ [phone] called and was updated pt. will discharge today. Pt. is aware she can contact dialysis social worker at the hospital as well as her are coord. if she needs additional assistance. Pt. 's care coord. arranged for meals for pt. while she recuperates.
--- NOTE | 2022-09-21 11:14 | PC.NURSE ---
Pt alert and oriented. Pt SBA with walker. Pt tolerating regular diet. Pt had pain of 6; see EMAR for intervention. Pt's dressing dry and intact. Pt discharged home at 1050.
--- NOTE | 2022-09-29 13:54 | W.ANESCHARGE ---
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
== END 2022-09-21 10:50 | disposition home or self-care (01) ==
LOC: OR 09:23 → MEDSURG 09:26
PROVIDERS: Family Medicine; PCP Physician Assistant Medical; Visit Provider Orthopaedic Surgery Sports Medicine
PROC: (CPT 27447; principal; 2022-09-20 11:15)
DX: M17.12 Unilateral primary osteoarthritis, left knee (principal); G89.18 Other acute postprocedural pain; G47.33 Obstructive sleep apnea (adult) (pediatric); J44.9 Chronic obstructive pulmonary disease, unspecified; I25.10 Atherosclerotic heart disease of native coronary artery without angina pectoris; H40.1290 Low-tension glaucoma, unspecified eye, stage unspecified
CPT/HCPCS: 27447; 01402; 36415; 64447; 64454; 73560; 76942; 80076; 82565; 84132; 84295; 84520; 85025; 97110; 97116; 97161; 97165; 99100; A9270; C1776; J0690; J1100; J1170; J1200; J2250; J2405; J2704; J3010; J3490; J7120

== ENCOUNTER 2022-10-05 13:53 | Outpatient (CLI) | payer OTHER, SELFPAY ==
--- NOTE | 2022-10-05 14:00 | CRLHL7_ITS ---
For Patients: As a result of the Century Cures Act, medical imaging exams and procedure reports are released immediately into your electronic medical record. You may view this report before your referring provider. If you have questions, please contact your health care provider. INDICATION: Leg pain and swelling. TECHNIQUE: Ultrasound venous duplex lower left extremity. Compression venous exam was performed using gallegos-scale, color Doppler, and spectral Doppler analysis. COMPARISON: None. FINDINGS: Deep veins: Sonographic imaging demonstrates the left common femoral, deep femoral, superficial femoral, popliteal, posterior tibial and the contralateral right common femoral veins to be fully compressible with normal color Doppler blood flow. Superficial veins: Greater saphenous vein is fully compressible. No popliteal cyst. IMPRESSION: Normal left lower extremity venous ultrasound, no sign of deep venous thrombosis. Dictated by Atif Munoz MD @ 10/05/2022 3:09:56 PM (Electronically Signed)
== END 2022-10-05 13:54 | disposition home or self-care (01) ==
LOC: US 13:55
PROVIDERS: PCP Physician Assistant Medical; Visit Provider Orthopaedic Surgery
DX: M79.605 Pain in left leg (principal); R22.42 Localized swelling, mass and lump, left lower limb; Z96.652 Presence of left artificial knee joint
CPT/HCPCS: 93971

== ENCOUNTER 2022-10-12 14:20 | Outpatient (CLI) | payer OTHER, SELFPAY ==
--- NOTE | 2022-10-12 14:40 | CRLHL7_ITS ---
For Patients: As a result of the Century Cures Act, medical imaging exams and procedure reports are released immediately into your electronic medical record. You may view this report before your referring provider. If you have questions, please contact your health care provider. BILATERAL SCREENING MAMMOGRAM WITH COMPUTER-AIDED DETECTION TECHNIQUE: CC and MLO views were obtained. These mammographic images have been obtained using full-field digital technique. These mammographic images were interpreted with the benefit of computer-aided detection. COMPARISON FILM: 05/25/21, 03/16/20, 10/29/17. FINDINGS: The breasts are heterogeneously dense, which may obscure small masses. IMPRESSION: There is no radiographic evidence for malignancy. ASSESSMENT: BI-RADS Category 2: Benign RECOMMENDATION: Routine screening mammogram in 1 year. A lay language report of this examination will be provided to the patient. SEDRICK SELBY M.D. Diagnostic Radiologist [email or web address] Transcribed: 10/13/2022, 3:[address]/Dictated by: Sedrick Selby MD @ 10/13/2022 9:12:00 AM (Electronically Signed)
== END 2022-10-12 14:21 | disposition home or self-care (01) ==
LOC: MAMMO 14:20
PROVIDERS: PCP Physician Assistant Medical; Visit Provider Physician Assistant Medical
DX: Z12.31 Encounter for screening mammogram for malignant neoplasm of breast (principal); R92.2 Inconclusive mammogram
CPT/HCPCS: 77067

== ENCOUNTER 2022-11-29 11:38 | Outpatient (CLI) | payer OTHER, SELFPAY ==
[2022-11-29 11:41] VITALS: BP 137/76; PULSE 77; RESP 16; O2SAT 98
[2022-11-29] MEDS: TETRACAINE 0.5% OPHTH 1 DROP EYE-LEFT ×3 (11:45→12:11)
[2022-11-29] MEDS: BRIMONIDINE TARTRATE 0.2% OPHTH 1 DROP EYE-LEFT ×2 (11:46→12:19)
--- NOTE | 2022-11-29 12:42 | P.OPTPRC_ITS ---
Procedure Note Date of procedure: 11/29/22 Will [facility] bill your pro fee for this procedure?: Yes Procedure Description: SURGEON: Dia Moss MD PREOPERATIVE DIAGNOSIS: Posterior capsular opacity, left eye POSTOPERATIVE DIAGNOSIS: Posterior capsular opacity, left eye PROCEDURE: YAG laser capsulotomy, left eye ANESTHESIA: Topical. ESTIMATED BLOOD LOSS: None PATHOLOGY SPECIMEN: None COMPLICATIONS: None INDICATIONS: See consult note for details. The risks, benefits and alternatives of the procedure were explained to the patient, who elected to proceed and signed informed consent to do so. PROCEDURE: The patient was brought to the pre-holding area where the left eye was identified as the operative eye. I placed my initials above this eye. The patient received 2 sets of 1 drop of 0.5% tetracaine and 1 drop of 1% tropicamide. They also received 1 drop of 0.2% brimonidine. They received 1 drop of 0.5% tetracaine immediately prior to bringing them back for the procedure. The patient was then brought to the procedure room where the left eye was again identified as the operative eye. A YAG Simon capsulotomy lens was placed on the eye. The laser was administered using a total number of 10 shots with an energy of 2.4 mJ per shot for a total energy of 24 mJ. The patient tolerated the procedure well. DISPOSITION: The patient was taken back to the pre-holding area and given 1 drop of 0.2% brimonidine in the left eye. They were discharged to home in stable condition. The patient was instructed to call me or go to the emergency department with any sudden change, including dramatic loss of vision, severe pain in the eye or eyebrow region, nausea, or vomiting. The patient was instructed to use the 0.2% brimonidine 1 drop 2 times a day in the left eye for 1 week. The patient will follow up in the clinic in 1-2 weeks
== END 2022-11-29 12:22 | disposition home or self-care (01) ==
LOC: EYE PRC 11:38
PROVIDERS: PCP Physician Assistant Medical; Visit Provider Ophthalmology
DX: H26.9 Unspecified cataract (principal)
CPT/HCPCS: 66821; A9270

== ENCOUNTER 2022-12-05 09:15 | Outpatient (RCR) | payer OTHER, SELFPAY ==
--- NOTE | 2022-09-25 15:39 | PT.OPE ---
PT [facility] Outpatient Eval PT [facility] Outpatient Eval Start: 09/25/22 10:07 Freq: Status: Active Protocol: Document 09/25/22 10:10 AYLA (Rec: 09/25/22 11:13 AYLA Desktop) E-signed By Bryon Garcia, PT, ATC Physical Therapy Outpatient Evaluation Insurance Information Insurance Name Medicare B Medical Diagnosis M17.12 Unilateral primary osteoarthritis, left knee L knee OA, s/p TKA 09/20/22 Treating Diagnosis L knee pain, swelling, stiffness, reduced mobility Referring MD Arzate Subjective Subjective DOS: 09/20/22 Feels she is making steady progress since procedure last week. Using Percoset 2-3x per day to control pain. Sleep duration about 2 hours before interruption from pain or stiffness. Sleeping in her bed with pillow beneath L knee. Resides alone in her apartment which has 6 stairs to enter ( rail on the L with ascent). A friend has been coming daily to assist with certain ADL's- dressing, showering. PMHx: R TKA 01/2021. Will need a revision once she heals from current L TKA. Pain Comments Average 3-4/10 High 8/ Date of Last Physician Visit 09/21/22 Date of Next Physician Visit 09/29/22 Date of Surgery (If applicable) 09/20/22 Current Work Status Retired Preferred Name Nicole Precautions Weight Bearing Status Weight Bear as Tolerated Therapy Limitations/Systems Review Not Limited Objective Range of Motion L PROM 5-95 degrees flexion L AROM 8-70 Strength L quad set 2/5, a lot of gluteal con-contraction. Swelling Mild to moderate Palpation Tender over incision and upper suarez (bruising) Balance & Gait Walks using wheeled walker with partial weight placement through involved LE Other/Pertinent Objective Independent L SLR, mild quad lag. Assessment Assessment/Impression Nicole is a very pleasant 72 year old woman known in PT from previous therapy attendance following her R TKA in 2020. She is very determined to rehabilitate the L knee as the R knee is due for a revision. She appears to be doing well one week s/p L TKA. She is ambulating safely using her wheeled walker and can transfer to/from the table independently. Also showing ability for an independent SLR already. Swelling, bruising and increased skin surface temperature are typical for the first week of recovery. Skilled PT is strongly recommended to address pain, inflammation and ROM-strength deficits. Balance and gait training to also be built into plan of care. Plan of Care Rehabilitation Potential Good Physical Therapy Goals 1.PROM 0-120 degrees flexion to ease transitions into/from car. 2.Quad set 4/5, no terminal extension lag with independent SLR x 10 rep.s. 3.Ambulate x 500 feet in absence of assistive device using equal WB'ing time and pressure through involved limb . 4.Stair ascent and descent x 10 using single rail. 5.Pain average 3/10 or less, able to sleep through the night without pain interuption . Coordination/Communication With Referral Source Treatment Plan/Direct Interventions Gait Training,Ice/Cold/ Vasopneumatic,Joint Mobilization,Manual Therapy, Neuromuscular Re-ed,Self-Care/ Home Management,Therapeutic Activities,Therapeutic Exercises Frequency/Duration 1-2x per week 12-20 weeks Patient Will Be Discharged From Therapy Independent w/HEP, Independently Progressing Evaluation Billing Untimed Code Treatment Minutes 30 PT Eval No Charge No Complexity Low Certification Information Initial Certification Date 09/25/22 Ending Certification Date 12/26/22 Provider Signature Shows Agreement With POC & Medical Necessity Physician Signature & Date Requested Please Sign/Date Here Physician Comment/Change : Physician NPI Number #
== END 2023-04-04 23:59 | disposition home or self-care (01) ==
PROVIDERS: PCP Physician Assistant Medical; Visit Provider Orthopaedic Surgery Sports Medicine
DX: M17.12 Unilateral primary osteoarthritis, left knee (principal); Z96.652 Presence of left artificial knee joint; M25.562 Pain in left knee; R60.9 Edema, unspecified; M25.60 Stiffness of unspecified joint, not elsewhere classified; Z74.09 Other reduced mobility; Z51.89 Encounter for other specified aftercare
CPT/HCPCS: 97016; 97110; 97112; 97116; 97140; 97161

== ENCOUNTER 2023-10-30 12:40 | Outpatient (CLI) | payer OTHER, SELFPAY | END 2023-10-30 12:41 | disposition home or self-care (01) | PROVIDERS: PCP Physician Assistant Medical; Visit Provider Emergency Medicine | DX: R41.3 Other amnesia (principal); D64.9 Anemia, unspecified; I10 Essential (primary) hypertension; E87.6 Hypokalemia; E78.5 Hyperlipidemia, unspecified | CPT/HCPCS: 82607; 82728; 84439; 84443 ==

== ENCOUNTER 2023-11-07 09:22 | Outpatient (CLI) | payer OTHER, SELFPAY | END 2023-11-07 09:23 | disposition home or self-care (01) | PROVIDERS: PCP Physician Assistant Medical; Visit Provider Emergency Medicine | DX: D50.9 Iron deficiency anemia, unspecified (principal); D64.9 Anemia, unspecified; R79.89 Other specified abnormal findings of blood chemistry; L98.9 Disorder of the skin and subcutaneous tissue, unspecified | CPT/HCPCS: 83540; 83550; 84443 ==

== ENCOUNTER 2023-11-09 16:57 | Outpatient (CLI) | payer OTHER, SELFPAY ==
--- NOTE | 2023-11-09 17:30 | CRLHL7_ITS ---
For Patients: As a result of the Century Cures Act, medical imaging exams and procedure reports are released immediately into your electronic medical record. You may view this report before your referring provider. If you have questions, please contact your health care provider. INDICATION: Amnesia. TECHNIQUE: Multiplanar multisequence noncontrast MR images of the brain. COMPARISON: CT brain 01/14/2020, MRI brain 11/08/2015. FINDINGS: Mild diffuse cerebral volume loss. No mass effect or midline shift. Scattered and patchy FLAIR hyperintensities in the supratentorial white matter have modestly progressed, and are typical for moderate chronic microvascular ischemic changes. No intracranial hemorrhage or pathologic extra-axial fluid collection. No diffusion restriction to suggest acute infarction. Stable chronic lacunar infarction left cerebellar hemisphere. The major arterial flow voids at the skullbase are preserved. Thinning of the ocular lenses. The paranasal sinuses are well aerated. Small left mastoid effusion. IMPRESSION: 1. No acute intracranial abnormality. 2. Moderate chronic microvascular ischemic changes have progressed. 3. Mild diffuse cerebral volume loss. Dictated by Ottoniel Oakes MD @ 11/11/2023 8:55:54 PM (Electronically Signed)
== END 2023-11-09 16:58 | disposition home or self-care (01) ==
LOC: MRI 16:58
PROVIDERS: PCP Emergency Medicine; Visit Provider Emergency Medicine
DX: R41.3 Other amnesia (principal); I67.82 Cerebral ischemia
CPT/HCPCS: 70551

== ENCOUNTER 2023-11-29 09:57 | Outpatient (CLI) | payer OTHER, SELFPAY | END 2023-11-29 09:58 | disposition home or self-care (01) | PROVIDERS: PCP Emergency Medicine; Visit Provider Emergency Medicine | DX: E87.6 Hypokalemia (principal) | CPT/HCPCS: 80053 ==

== ENCOUNTER 2023-12-06 06:19 | Outpatient (CLI) | payer OTHER, SELFPAY ==
--- NOTE | 2023-12-06 08:10 | W.ANESCHARGE ---
Anesthesia Charges Start Date/Time Anesthesia Start Date: 12/06/23 Anesthesia Start Time: 07:15 Stop Date/Time Anesthesia Stop Date: 12/06/23 Anesthesia Stop Time: 08:08
--- NOTE | 2023-12-06 08:31 | W.ANESCHARGE ---
Anesthesia Charges Start Date/Time Anesthesia Start Date: 12/06/23 Anesthesia Start Time: 07:15 Stop Date/Time Anesthesia Stop Date: 12/06/23 Anesthesia Stop Time: 08:08 Summary Extremes of Age - Over 70 or under 1: MDA
== END 2023-12-06 06:20 | disposition home or self-care (01) ==
LOC: OP CLINIC 06:19
PROVIDERS: PCP Emergency Medicine; Visit Provider Surgery
DX: Z86.010 Personal history of colon polyps (principal); D12.2 Benign neoplasm of ascending colon
CPT/HCPCS: 00813; 43239; 45385; 88305; 99100; J2704

== ENCOUNTER 2023-12-20 11:44 | Outpatient (CLI) | payer OTHER, SELFPAY | END 2023-12-20 11:45 | disposition home or self-care (01) | LOC: NFLDREF 12-23 02:22 | PROVIDERS: PCP Emergency Medicine; Referring Provider Emergency Medicine; Visit Provider Emergency Medicine | DX: Z00.00 Encounter for general adult medical examination without abnormal findings (principal); D50.8 Other iron deficiency anemias; R73.09 Other abnormal glucose; I25.10 Atherosclerotic heart disease of native coronary artery without angina pectoris; E78.2 Mixed hyperlipidemia; F32.A Depression, unspecified; M85.80 Other specified disorders of bone density and structure, unspecified site; J44.9 Chronic obstructive pulmonary disease, unspecified; Z98.84 Bariatric surgery status | CPT/HCPCS: 82525; 84255; 84630 ==

== ENCOUNTER 2024-01-09 09:52 | Outpatient (CLI) | payer OTHER, SELFPAY ==
--- NOTE | 2024-01-09 10:00 | CRLHL7_ITS ---
For Patients: As a result of the Century Cures Act, medical imaging exams and procedure reports are released immediately into your electronic medical record. You may view this report before your referring provider. If you have questions, please contact your health care provider. INDICATION: Lung cancer screening. History of smoking. High risk patient with greater than 40 pack-year smoking history. TECHNIQUE: Low-dose lung cancer screening non-contrast CT chest. Dose reduction techniques were used. COMPARISON: None. FINDINGS: NODULES: Subpleural nodules in the right apex measuring 5 millimeters or less. LUNGS AND PLEURA: Emphysema is present. Biapical linear scarring noted. MEDIASTINUM: Visualized thyroid is unremarkable. No enlarged lymph nodes. CORONARY ARTERY CALCIFICATION: Present. LIMITED UPPER ABDOMEN: Postop changes to the stomach. Vascular calcifications. MUSCULOSKELETAL: Multilevel degenerative disc disease. No vertebral body compression fracture. IMPRESSION: Subpleural nodules in the right lung apex with associated scarring measuring 5 millimeters or less. LUNG-RADS CATEGORY: 2: Benign. RADIOLOGIST RECOMMENDATION: Continue annual screening with low-dose CT chest in 12 months. Please note that all CT scans at this facility use dose modulation, iterative reconstruction, and/or weight-based dosing when appropriate to reduce radiation dose to as low as reasonably achievable. Dictated by Sedrick Castro MD @ 01/09/2024 11:29:06 AM (Electronically Signed)
== END 2024-01-09 09:53 | disposition home or self-care (01) ==
LOC: CT 09:53
PROVIDERS: PCP Emergency Medicine; Visit Provider Emergency Medicine
DX: Z12.2 Encounter for screening for malignant neoplasm of respiratory organs (principal); R91.8 Other nonspecific abnormal finding of lung field; F17.210 Nicotine dependence, cigarettes, uncomplicated
CPT/HCPCS: 71271

== ENCOUNTER 2024-03-07 13:09 | Outpatient (CLI) | payer OTHER, SELFPAY ==
--- NOTE | 2024-03-07 13:20 | CRLHL7_ITS ---
For Patients: As a result of the Century Cures Act, medical imaging exams and procedure reports are released immediately into your electronic medical record. You may view this report before your referring provider. If you have questions, please contact your health care provider. BILATERAL SCREENING MAMMOGRAM WITH COMPUTER-AIDED DETECTION AND TOMOSYNTHESIS TECHNIQUE: CC and MLO views were obtained. These mammographic images have been obtained using full-field digital technique. These mammographic images were interpreted with the benefit of computer-aided detection. Breast Tomosynthesis was used in this interpretation. COMPARISON FILM: 10/12/22, 05/25/21, 03/16/20. FINDINGS: The breasts are heterogeneously dense, which may obscure small masses IMPRESSION: There is no radiographic evidence for malignancy. ASSESSMENT: BI-RADS Category 2: Benign RECOMMENDATION: Routine screening mammogram in 1 year. A lay language report of this examination will be provided to the patient. Sedrick Castro M.D. Diagnostic Radiologist [email or web address] Transcribed: 3:44 p.gita cordova/Dictated by: Sedrick Castro MD @ 03/11/2024 10:49:00 AM (Electronically Signed)
== END 2024-03-07 13:10 | disposition home or self-care (01) ==
LOC: MAMMO 13:09
PROVIDERS: PCP Emergency Medicine; Visit Provider Emergency Medicine
DX: Z12.31 Encounter for screening mammogram for malignant neoplasm of breast (principal); R92.333 Mammographic heterogeneous density, bilateral breasts
CPT/HCPCS: 77063; 77067

== ENCOUNTER 2024-04-23 11:55 | Outpatient (CLI) | payer OTHER, SELFPAY | END 2024-04-23 11:56 | disposition home or self-care (01) | LOC: LKVREF 11:56 | PROVIDERS: PCP Emergency Medicine; Visit Provider Emergency Medicine | DX: Z71.3 Dietary counseling and surveillance (principal) | CPT/HCPCS: 82565 ==

== ENCOUNTER 2024-08-13 13:17 | Outpatient (CLI) | payer OTHER, SELFPAY | END 2024-08-13 13:18 | disposition home or self-care (01) | PROVIDERS: PCP Emergency Medicine; Visit Provider Physician Assistant Medical | DX: R51.9 Headache, unspecified (principal); R42 Dizziness and giddiness; R41.3 Other amnesia; R82.90 Unspecified abnormal findings in urine | CPT/HCPCS: 80053; 82607; 84439; 84443; 87086 ==

== ENCOUNTER 2024-08-20 13:26 | Outpatient (CLI) | payer OTHER, SELFPAY ==
--- NOTE | 2024-08-20 14:00 | CRLHL7_ITS ---
For Patients: As a result of the Century Cures Act, medical imaging exams and procedure reports are released immediately into your electronic medical record. You may view this report before your referring provider. If you have questions, please contact your health care provider. INDICATION: Vertigo, headache. TECHNIQUE: CT head without contrast. FINDINGS: There is no intracranial hemorrhage. The gallegos white matter differentiation is maintained. The ventricles and cisterns are clear. There are nonspecific white matter hypodensities commonly seen with chronic small vessel disease. IMPRESSION: No acute intracranial abnormality at noncontrast CT. Please note that all CT scans at this facility use dose modulation, iterative reconstruction, and/or weight-based dosing when appropriate to reduce radiation dose to as low as reasonably achievable. Dictated by Parker Roach MD @ 08/21/2024 10:04:37 AM (Electronically Signed)
--- NOTE | 2024-08-20 14:30 | CRLHL7_ITS ---
For Patients: As a result of the Century Cures Act, medical imaging exams and procedure reports are released immediately into your electronic medical record. You may view this report before your referring provider. If you have questions, please contact your health care provider. INDICATION: Vertigo, headache. TECHNIQUE: CTA head with contrast bolus tracking, 3D angiographic rendering using maximum intensity projection (MIP) and images permanently archived. FINDINGS: There is normal opacification of the intracranial vasculature. There is no large vessel occlusion. No aneurysm is identified. IMPRESSION: No acute intracranial abnormality at CTA. Please note that all CT scans at this facility use dose modulation, iterative reconstruction, and/or weight-based dosing when appropriate to reduce radiation dose to as low as reasonably achievable. Dictated by Parker Roach MD @ 08/21/2024 10:06:01 AM (Electronically Signed)
--- NOTE | 2024-08-20 15:00 | CRLHL7_ITS ---
For Patients: As a result of the Century Cures Act, medical imaging exams and procedure reports are released immediately into your electronic medical record. You may view this report before your referring provider. If you have questions, please contact your health care provider. INDICATION: Vertigo, headache. TECHNIQUE: CTA neck with contrast bolus tracking, 3D angiographic rendering using maximum intensity projection (MIP) and images permanently archived. FINDINGS: There is carotid atherosclerosis bilaterally. There is no significant carotid artery stenosis or dissection. There is no significant vertebral artery stenosis or dissection. The soft tissues of the neck are within normal limits. Degenerative changes are noted in the cervical spine. IMPRESSION: No significant carotid or vertebral artery stenosis or dissection. Please note that all CT scans at this facility use dose modulation, iterative reconstruction, and/or weight-based dosing when appropriate to reduce radiation dose to as low as reasonably achievable. Dictated by Parker Roach MD @ 08/21/2024 10:07:19 AM (Electronically Signed)
== END 2024-08-20 13:27 | disposition home or self-care (01) ==
LOC: CT 13:27
PROVIDERS: PCP Emergency Medicine; Visit Provider Physician Assistant Medical
DX: R51.9 Headache, unspecified (principal); R42 Dizziness and giddiness
CPT/HCPCS: 70450; 70496; 70498; Q9967

== ENCOUNTER 2024-12-17 12:08 | Outpatient (CLI) | payer OTHER, SELFPAY | END 2024-12-17 12:09 | disposition home or self-care (01) | PROVIDERS: PCP Physician Assistant Medical; Visit Provider Physician Assistant Medical | DX: Z00.00 Encounter for general adult medical examination without abnormal findings (principal); E55.9 Vitamin D deficiency, unspecified; R79.89 Other specified abnormal findings of blood chemistry; D64.9 Anemia, unspecified; K59.01 Slow transit constipation; Z13.29 Encounter for screening for other suspected endocrine disorder | CPT/HCPCS: 80061; 82306; 82728; 82747; 83540; 83550; 84439; 84443 ==

== ENCOUNTER 2025-01-09 13:11 | Outpatient (CLI) | payer OTHER, SELFPAY ==
--- NOTE | 2025-01-09 13:00 | CRLHL7_ITS ---
For Patients: As a result of the Century Cures Act, medical imaging exams and procedure reports are released immediately into your electronic medical record. You may view this report before your referring provider. If you have questions, please contact your health care provider. DEXA BONE SCAN Current height (in): 59. Weight (lb): 160 Menopause age: 52. Ethnicity: White. 1. Have you had a previous hip or vertebral fracture? No. 2. Have you had any fractures during your adult life which did not result from significant trauma (e.g., auto accident)? No. 3. Did either of your parents have a hip fracture? No. 4. Do you smoke? No. 5. Have you ever taken Glucocorticoids? No. 6. Do you have rheumatoid arthritis? Yes. 7. Do you have secondary osteoporosis? No. 8. Do you drink 3 or more alcoholic drinks per day? No. 9. Are you being treated for osteoporosis? No. 10. Have you ever taken any of the following medications: Actonel, Evista, Fosamax, Miacalcin, Reclast, Boniva, Forteo, HRT (i.e. estrogen/hormone therapy), Protelos, Prolia, Vitamin D, Calcium, other ??? please specify. ANSWER: Yes, Vitamin D, and Calcium. 11. Do you have any of the following medical conditions: Anorexia or bulimia, asthma or emphysema, end stage renal disease, hyperparathyroidism, any seizure disorders, cancer, inflammatory bowel diseases, hysterectomy, other ??? please specify. ANSWER: No. 12. What was your maximum height (inches)? 59. 13. Do you perform weight bearing exercise regularly? No. 14. Do you regularly consume dairy products? No. 15. Do you drink caffeinated beverages? Yes. 16. At what age did your period start? 15. 17. Are you premenopausal? No. 18. How many full-term pregnancies have you had? 2. 19. Have you ever missed your period for more than 6 months in a row (not including or menopause)? No. TECHNIQUE: Bone mineral density study was performed using the [employer]. FINDINGS: The results of the study expressed as bone mineral density (BMD) are as follows: Lumbar spine L1 to L4: BMD: 0.886 g/cm2. T-score: -1.5. Z-score: 0.8. Neck Left: BMD: 0.776 g/cm2. T-score: -0.7. Z-score: 1.3. Right: BMD: 0.722 g/cm2. T-score: -1.1. Z-score: 0.8. Total Left: BMD: 0.874 g/cm2. T-score: -0.6. Z-score: 1.1. Right: BMD: 0.798 g/cm2. T-score: -1.2. Z-score: 0.5. IMPRESSION: Osteopenia. COMPARISON: Compared with scan of 05/25/2021, the bone mineral density has decreased by 5.4 percent at the spine and decreased by 3.0 percent at the hip. Compared with scan of 10/29/2017, the bone mineral density has increased by 1.1 percent at the spine and decreased by 9.3 percent at the hip. FRAX 10-year Fracture Risk Major Osteoporotic Fracture: 12 percent Hip Fracture: 1.6 percent Reported Risk Factors: [place] () Neck BMD=0.722, BMI= 32.3 Yamilet Robison M.D. Body/Diagnostic Radiologist [email or web address] [email or web address] / DW/Dictated by: Yamilet Robison MD @ 01/11/2025 3:49:00 AM (Electronically Signed)
--- NOTE | 2025-01-09 14:00 | CRLHL7_ITS ---
For Patients: As a result of the Century Cures Act, medical imaging exams and procedure reports are released immediately into your electronic medical record. You may view this report before your referring provider. If you have questions, please contact your health care provider. INDICATION: Lung cancer screening. Smoking history. TECHNIQUE: CT chest low dose without contrast. COMPARISON: January 09, 2024. FINDINGS: Lungs and pleural spaces: No suspicious nodules or infiltrates. Nodular scarring in the lung apices is stable and very likely benign. Pleural spaces are clear. Heart and vasculature: Heart size is normal. Thoracic aorta and pulmonary artery are normal in caliber. Lymph nodes and mediastinum: No mediastinal, hilar, or axillary adenopathy. Chest wall: Unremarkable. Upper abdomen: Normal. Bones: Unremarkable for age. IMPRESSION: No suspicious lung lesions. Lung-RADS Category 2: BENIGN BEHAVIOR OR APPEARANCE. Continue annual screening, if eligible, with LDCT in 12 months. Probability of malignancy is <1%. Please note that all CT scans at this facility use dose modulation, iterative reconstruction, and/or weight-based dosing when appropriate to reduce radiation dose to as low as reasonably achievable. Dictated by Jorge Arthur MD @ 01/12/2025 6:57:05 AM (Electronically Signed)
== END 2025-01-09 13:12 | disposition home or self-care (01) ==
LOC: RAD 13:11
PROVIDERS: PCP Physician Assistant Medical; Visit Provider Physician Assistant Medical
DX: Z12.2 Encounter for screening for malignant neoplasm of respiratory organs (principal); Z87.891 Personal history of nicotine dependence; Z13.820 Encounter for screening for osteoporosis; M85.89 Other specified disorders of bone density and structure, multiple sites; Z78.0 Asymptomatic menopausal state
CPT/HCPCS: 71271; 77080